=== PATIENT | female | born 2000 | race Caucasian/White ===

== ENCOUNTER 2023-11-21 22:31 | Emergency (ER) | payer OTHER, BC ==
[2023-11-21] MEDS ORDERED: KETOROLAC TROMETHAMINE 15 MG/ML VIAL IVPUSH ONE (23:14)
[2023-11-21] MEDS ORDERED: LIDOCAINE 4% PATCH TP ONE (23:18)
[2023-11-21 23:36] VITALS: BP 103/73; PULSE 60; RESP 12; TEMP 98.2; BMI 23.3
[2023-11-22] MEDS: LIDOCAINE PATCH REMOVAL MC SCH (00:25)
[2023-11-22] MEDS: LIDOCAINE 5% TOPICAL PATCH TP ONE (00:26)
[2023-11-22] MEDS: ACETAMINOPHEN 325 MG TABLET (FP) PO ONE (00:26)
[2023-11-22] MEDS ORDERED: KETOROLAC TROMETHAMINE 15 MG/ML VIAL ONE ×2 (00:27→00:29)
[2023-11-22] MEDS: KETOROLAC TROMETHAMINE 30 MG/1 ML VIAL IM ONE (00:34)
[2023-11-22] MEDS ORDERED: IBUPROFEN 400 MG TABLET (FP) PO ONE (00:36)
[2023-11-22] MEDS: IBUPROFEN 400 MG TABLET (FP) PO ONE (00:38)
== END 2023-11-22 01:46 | disposition home or self-care (01) ==
LOC: JER 22:31
DX: M54.2 Cervicalgia (principal); R11.0 Nausea; R51.9 Headache, unspecified; V49.49XA Driver injured in collision with other motor vehicles in traffic accident, initial encounter
CPT/HCPCS: 70450-TC; 72125-TC; 84703; 99284-25